=== PATIENT | female | born 1945 | race Caucasian/White ===

== ENCOUNTER 2018-10-15 05:14 | Day surgery (SDC) ==
--- NOTE | 2018-10-10 13:29 | EKG Report ---
Test Performed on : 10/10/2018 1:10:43 PM Test Reason : PAT Blood Pressure : / mmHG Vent. Rate : 080 BPM Atrial Rate : 080 BPM P-R Int : 146 ms QRS Dur : 074 ms QT Int : 364 ms P-R-T Axes : 043 034 049 degrees QTc Int : 419 ms Normal sinus rhythm. Low voltage QRS Nonspecific ST and T wave abnormality Abnormal ECG No previous ECGs available Confirmed by Christina CARTER, Avila ([id number]) on 10/11/2018 8:52:01 AM
[2018-10-10 13:33] LABS: BASO# 0.02 X1000 (0.0-0.2); BASO% 0.3 % (0.0-0.8); EOS# 0.24 X1000 (0.0-0.7); EOS% 3.1 % (0.0-10.0); HEMOGLOBIN 12.4 g/dL (12.0-16.0); LYMPH# 2.66 X1000 (1.2-3.4); LYMPH% 34.7 % (20.5-51.1); MCH 29.1 PG (27-31); MCHC 32.6 g/dL (33-37); MCV 89.2 FL (81-99); MONO% 9.1 % (1.7-9.3); MPV 9.5 FL (7.4-10.4); NEUT# 4.04 X1000 (1.4-6.5); NEUT% 52.8 % (42.2-75.2); PLT 342 X1000 (130-400); RBC 4.26 XMIL (4.2-5.4); RDW 14.7 % (11.5-14.5); WBC 7.66 X1000 (4.8-10.8)
--- NOTE | 2018-10-12 16:10 | HISTORY AND PHYSICAL ---
DATE OF SURGERY: 10/15/2018. HISTORY OF PRESENT ILLNESS: The patient is a 73-year-old female who was referred to me by Dr. Renetta Rice because of advanced stage prolapse. She is feeling pain, she is feeling like she is sitting on something and she is having increasing difficulty with reclining because of the severity of the prolapse. On evaluation she has an extremely large posterior compartment defect that is primarily apical and extending all the way down distally as well. She has some anterior compartment prolapse as well that is not as severe, and enterocele is easily palpated. Because of this we are proceeding towards an obliterative procedure. We discussed pessary management, but I do not feel it is going to assist with her distal posterior issue. She and her daughter have discussed the risks and benefits of surgery between themselves after I presented it to them and they agree they wished to proceed with an obliterative procedure. PAST MEDICAL HISTORY: Positive for hypertension, hypercholesterolemia, gastroesophageal reflux, hiatal hernia, hypothyroidism and migraine headaches. PAST SURGICAL HISTORY: Positive for left thyroidectomy and a large scalp incision related to an KIARRA. She is noted to be a para 3-0-0-3. ALLERGIES: None. CURRENT MEDICATIONS: Ramipril 5, levothyroxine 50 mcg, aspirin 81, amitriptyline 25, Estrace vaginal cream, latanoprost 0.005%, triamcinolone 0.1% ointment, pravastatin 20. FAMILY HISTORY: Positive for colon cancer in a niece. SOCIAL HISTORY: Negative for tobacco, ETOH, or drugs. REVIEW OF SYSTEMS: Negative except as noted as above. PHYSICAL EXAMINATION: VITAL SIGNS: BMI is 27. HEENT: Normocephalic, atraumatic. PERRLA. EOMI. NECK: No thyromegaly. CARDIOVASCULAR: Regular rate and rhythm without murmur, gallop or rub. PULMONARY: Clear to auscultation and percussion. ABDOMEN: Soft. GENITOURINARY: Shows stage III prolapse that is primarily posterior apical. TBL 11 point C -7, AP +3, BP +4, AA -1, BA -5. The small bowel is palpated in the apical portion as well. NEUROLOGIC: Afocal. ASSESSMENT AND PLAN: The patient with advanced stage prolapse who is wishing to proceed towards surgical intervention. She is being consented for a fractional dilation and curettage with LeFort colpocleisis, mid urethral sling and probable distal posterior compartment defect. This procedure possibly could change when the patient is asleep and we have a better examination. cc: Pancho Evans MD
[2018-10-15] MEDS ORDERED: LR 1,000 ML ONE ×2 (05:40→08:52)
[2018-10-15] MEDS ORDERED: KEFZOL 1 GM/D5W 1 GM/50 ML IVPB ONE (05:40)
[2018-10-15] MEDS ORDERED: SODIUM CHLORIDE 0.9% ONE ×2 (06:23→07:59)
[2018-10-15] MEDS ORDERED: SENSORCAINE 0.5%-EPI 1:200,000 ONE ×2 (06:23→07:59)
[2018-10-15] MEDS ORDERED: METROGEL-VAGINAL 0.75% GEL ONE (06:23)
[2018-10-15] MEDS ORDERED: D10W 500 ML ONE (06:24)
[2018-10-15] MEDS ORDERED: DIPRIVAN 1% ONE (06:34)
--- NOTE | 2018-10-15 06:48 | H&P REVIEW ---
H&P Update H&P Review: H&P was reviewed and patient was examined, No change has occurred in the patient's condition
[2018-10-15] MEDS ORDERED: XYLOCAINE-MPF 2% ONE (07:01)
[2018-10-15] MEDS ORDERED: FENTANYL ONE (07:01)
[2018-10-15] MEDS ORDERED: TORADOL ONE (07:10)
[2018-10-15] MEDS ORDERED: DECADRON ONE (07:10)
[2018-10-15] MEDS ORDERED: ZOFRAN ONE (07:10)
[2018-10-15] MEDS ORDERED: LASIX ONE (07:50)
[2018-10-15] MEDS ORDERED: DEMEROL ONE (08:56)
[2018-10-15] MEDS: LR 1,000 ML IV SCH ×2 (10:45→17:31)
--- NOTE | 2018-10-15 11:20 | OPERATIVE NOTE ---
PROCEDURE DATE: 10/15/2018 PREOPERATIVE DIAGNOSIS: POP-Q stage IV prolapse. POSTOPERATIVE DIAGNOSIS: POP-Q stage IV prolapse, vulvar lesion PROCEDURE: LeFort colpocleisis mid urethral sling with Obtryx, perineorrhaphy and vulvar biopsy. SURGEON: Pancho Evans MD ANESTHESIA: General. ESTIMATED BLOOD LOSS: 40 mL. HISTORY: The patient is a 73-year-old female who with POP-Q stage IV prolapse, referred to me by Dr. Renetta Rice in the [facility]. The patient has been managed with pessary and did not do well with this. She wished to proceed to surgical intervention. OPERATIVE FINDINGS: Point BP was +3, +4 in the resting position supine, point C was -2 with no Valsalva whatsoever. DESCRIPTION OF PROCEDURE: Patient taken to operating room and placed in supine position after adequate general anesthesia obtained. She was placed in candy cane stirrups. The vagina and perineum prepped and draped in the usual fashion with no pressure whatsoever. Point BP was easily sitting at a +3, +4 position. At this time, we identified the cervix and grasped this with single- tooth tenaculum. We used Hegar dilators to dilate the cervix. We did an endometrial scraping to confirm lack of any type of malignancy within the uterus. After completion of this and collection of the proximal Telfa, it was handed off to nursing services. We proceeded with the reconstruction. Starting in the anterior compartment, we grasped the midline defect with Allis clamps at 2 sites, and then injected approximately 40 mL of 0.5% Marcaine with epinephrine diluted 50% with normal saline for hydrodissection as well as pain management of this area. We then made a midline incision, used primarily blunt and sharp dissection. We dissected laterally to the point of leaving approximately a 2 cm tunnel on the right and left. We dissected all the way from the urethrovesical neck up to the cervical stump. We then excised this tissue quite easily. We then turned our attention towards the posterior compartment. In a similar fashion, we did a hydrodissection. We required approximately 40-50 mL of the same local anesthetic in this compartment. She had extremely large posterior defect. Upon doing this, we ran into a large amount of small bowel. It was in this area consistent with her enterocele so we did not open the enterocele sac. We actually did a reverse imbrication similar to a James's culdoplasty using 2.0 Ti-Cron suture, and continued imbricating until we had complete reduction of the defect of this large enterocele. This brought the small bowel more up to the ischial spine level. At this time, we then began with excision of the vaginal mucosa both on the right and left-hand side, and allowing room again for tunnel creation on the right and left-hand side. We then began imbricating using initially a 0 Vicryl ligature. We sewed through the anterior and then the posterior portion of the cervix imbricating the cervix. We did this for the first 2 rows of sutures, and then continued on with our closure using 2.0 Vicryl ligature in interrupted fashion closing anterior to posterior. We had complete imbrication of this area. We then turned our attention towards closure of the vaginal mucosa. We used interrupted 0 Vicryl ligature in this area to do that. At this time, we turned our attention towards placement of the sling. The urethra was grasped proximally and distally. Approximately, 10 mL of the same local anesthetic was injected for periurethral dissection. A sagittal incision was made. Metzenbaum scissors were utilized to dissect up to the ischial pubic ramus at each side at approximately the 10:00 and 2:00 position. Based on the bony landmarks of the ramus as well as the insertion of the adductor longus, a stab incision was initially made on the left-hand side. The halo device was introduced through this incision through the obturator canal to the fine grade operator's finger, which directed out. The mesh was attached to it, and was retracted back through the skin. This was performed on the contralateral side in a similar fashion. At this time, we attempted to place a cystoscope, but the urethral caliber was so small we had to use Hegar dilators to dilate the urethra up to be able to get the cystoscope in. We did this and then introduced a cystoscope and drained all urine out of the bladder. We then refilled the bladder with D10. Both ureters were effluxing urine. There was no abnormalities of the bladder mucosa whatsoever. There was no evidence of any mesh whatsoever. Cystoscope was removed. A Kasey clamp was placed on the mid urethral position. The tape was brought up with the Kasey clamp, blue tag was excised. The sheaths were easily removed. There was no tension on the mesh whatsoever. The mid urethral incision was closed in a running 2.0 Vicryl ligature. We then turned our attention towards performing a perineorrhaphy to help close the genital hiatus. We grasped this area with an Allis clamp, and then repeated closer to the perineum. We injected approximately 10-15 mL of the same local anesthetic. Upon doing this, we then made a javier-shaped incision and excised the vaginal mucosa. We then plicated this area with interrupted #1 Vicryl ligatures to help close off the distal posterior portion as well as this perineal portion. We then closed this remaining incision with a 2.0 Vicryl ligature. Upon inspection of all the out, at this point, we noticed a rubbery feeling lesion just at the introitus on the patient's right side measuring approximately 2 cm in size. Upon closer inspection, this was felt to possibly be an early squamous cell carcinoma so we used a scalpel and actually did a wedge resection right at that area of approximately 2 to 4 mm wedge both getting normal tissue as well as the abnormal tissue. This was then sent as a separate specimen labeled vulvar biopsy. We then used electrocautery to provide hemostasis to this area. Rectal examination was performed. No abnormalities were noted. The Alanis catheter was placed. Output was noted to be clear. Sponge count and needle counts were correct x3. Packs and drains were Alanis. Patient was awakened, and taken to the recovery room with vital signs stable. cc: Pancho Evans MD
[2018-10-15] MEDS: NORCO-5 PO PRN ×3 (12:28→20:48)
--- NOTE | 2018-10-15 12:49 | PROGRESS NOTE ---
DATE: 10/15/2018 SUBJECTIVE: Patient is alert and oriented x3. OBJECTIVE: Afebrile, vital signs are stable. Urine output is adequate and clear ASSESSMENT AND PLAN: We discussed her typical postoperative care. We discussed a voiding trial in the morning. We also discussed the vulvar lesion that a biopsy was performed on, and I explained to the patient that we would address that as the pathology results returned. The patient's daughter was with the patient. She agrees with this plan of management. cc: Pancho Evans MD
[2018-10-15] MEDS: ALTACE PO SCH ×2 (13:23→13:27)
[2018-10-15] MEDS: SYNTHROID PO SCH (13:23)
[2018-10-15] MEDS: PERIDEX MT SCH ×2 (13:27→20:47)
[2018-10-15] MEDS: COLACE PO SCH ×2 (13:27→20:48)
[2018-10-15] MEDS: TORADOL IV SCH ×2 (13:41→18:40)
[2018-10-15] MEDS ORDERED: ELAVIL PO SCH (21:00)
[2018-10-15 23:14] LABS: URINE SOURCE CATH
[2018-10-15 23:21] LABS: BILIRUBIN URINE NEGATIVE (NEGATIVE); BLOOD URINE NEGATIVE (NEGATIVE); COLOR STRAW; GLUCOSE URINE NEGATIVE (NEGATIVE); KETONE URINE NEGATIVE (NEGATIVE); LEUKOCYTES URINE NEGATIVE (NEGATIVE); NITRITE URINE NEGATIVE (NEGATIVE); PH URINE 7.5; PROTEIN URINE NEGATIVE (NEGATIVE); TURBIDITY URINE CLEAR (CLEAR); UR EPITHELIAL CELLS <10 /HPF (<10); URINE BACTERIA NEGATIVE /HPF; URINE RBC <10 /HPF (<10); URINE WBC <10 /HPF (<10); UROBILINOGEN URINE NORMAL (NORMAL)
[2018-10-16] MEDS: TORADOL IV SCH ×3 (00:20→06:14)
[2018-10-16] MEDS: NORCO-5 PO PRN ×2 (00:20→05:37)
[2018-10-16] MEDS: LR 1,000 ML IV SCH ×2 (00:25→08:26)
[2018-10-16] MEDS: SYNTHROID PO SCH ×2 (05:37→06:16)
[2018-10-16 07:45] VITALS: BP 166/91
[2018-10-16] MEDS: COLACE PO SCH (08:24)
[2018-10-16] MEDS: ALTACE PO SCH (08:24)
[2018-10-16] MEDS: PERIDEX MT SCH (08:24)
[2018-10-16] MEDS ORDERED: PRAVACHOL PO SCH (09:00)
--- NOTE | 2018-10-16 10:18 | DISCHARGE SUMMARY ---
ADMISSION DATE: 10/15/2018 DISCHARGE DATE: 10/16/2018 SUBJECTIVE: Patient is actually standing into the room about to walk to the bathroom, feeling well, and having very little pain. OBJECTIVE: Afebrile. Vital signs stable. Urine output is appropriate. ASSESSMENT AND PLAN: We will continue with her voiding trial through the morning and hopefully plan on discharging her after successful completion of the voiding trial. She will return to see us in 3 weeks. DISCHARGE MEDICATIONS: [place] and Colace. DISCHARGE INSTRUCTIONS: She was instructed in regular diet and decreased activity. cc: Pancho Evans MD
== END 2018-10-16 10:15 | disposition home or self-care (01) ==
LOC: OPS 05:14 → 4N 05:14 → OPS 10-16 10:15
PROVIDERS: ATTEND Obstetrics & Gynecology
PROC: GY.CYST (2018-10-15 06:58)
CPT/HCPCS: 81001; 85025; 88304; 88305; 88313; 93005; 93010; 94761; 94799; A9270; C1771; J0690; J1100; J1885; J1940; J2175; J2405; J3010; J7120